=== PATIENT | male | born 1955 | race African-American/Black ===

== ENCOUNTER 2023-10-13 13:12 | Emergency (ER) | payer BC, MEDICAID ==
[~2023-10-13] VITALS: Ht 185.4 cm; Wt 99.0 kg
[~2023-10-13 13:12] MED LIST: AMLO5TAB88 PO; ATOR20TA PO; COR12 PO
[2023-10-13 13:20] VITALS: BP 129/78; PULSE 57; RESP 16; TEMP 98.9; O2SAT 100
[2023-10-13 13:53] LABS: BASOPHILS % 2.1 % (0.0-2.0); DIFFERENTIAL COMMENT 0; EOSINOPHILS % 8.1 % (0.0-5.0); HEMATOCRIT. 40.3 % (42.0-52.0); HEMOGLOBIN. 13.4 g/dL (14.0-18.0); LYMPHOCYTES % 29.9 % (20.0-50.0); MEAN CORPUSCULAR HEMOGLOBIN 29.3 pg (28.0-32.0); MEAN CORPUSCULAR HGB CONC 33.2 g/dL (31.0-37.0); MEAN CORPUSCULAR VOLUME 88.3 fL (80.0-94.0); MEAN PLATELET VOLUME 9.9 fl (7.4-10.4); MONOCYTES % 11.1 % (2.0-8.0); NEUTROPHILS % 48.8 % (40.0-76.0); PLATELET 228 x1000/uL (130-400); RED BLOOD CELL COUNT 4.57 mill/uL (4.7-6.1); RED CELL DISTRIBUTION WIDTH 15.5 % (11.6-14.6); WHITE BLOOD COUNT 5.8 x1000/uL (4.5-11.0)
[2023-10-13 14:07] LABS: ALANINE AMINOTRANSFERASE 9 IU/L (10-49); ALBUMIN 4.5 g/dL (3.2-4.8); ASPARTATE AMINOTRANSFERASE 18 IU/L (<34); BILIRUBIN TOTAL 0.6 mg/dL (0.1-1.0); CALCIUM 9.5 mg/dL (8.7-10.4); CARBON DIOXIDE 29 mEq/L (21-32); CHLORIDE 104 mEq/L (98-107); CREATININE 1.5 mg/dL (0.6-1.3); GLUCOSE 80 mg/dL (70-105); POTASSIUM 5.2 mEq/L (3.5-5.1); SODIUM 137 mEq/L (136-145); TROPONIN I HIGH SENSITIVITY 53 ng/L (3.0-53); UREA NITROGEN BLOOD 15 mg/dL (9-23)
[2023-10-13 14:08] LABS: PROTEIN TOTAL 8.7 g/dL (6.0-8.3)
[2023-10-13] MEDS ORDERED: IBUP-2029 MT (14:46)
[2023-10-13] MEDS: ASPIRIN 325MG TABLET PO ONE (14:50)
[2023-10-13] MEDS: IBUPROFEN 600MG TABLET PO ONE (14:50)
== END 2023-10-13 15:11 | disposition home or self-care (01) ==
LOC: ER 13:12
DX: R07.89 Other chest pain (principal); I10 Essential (primary) hypertension
CPT/HCPCS: 36415; 71045; 80053; 84484; 85025; 93005; 99285

== ENCOUNTER 2024-07-24 14:43 | Inpatient (IN) | payer BC, MEDICAID, MEDICARE ==
[~2024-07-24] VITALS: Ht 190.5 cm; Wt 93.4 kg
[~2024-07-24 14:43] MED LIST changes: +IBUP-2029 MT
[2024-07-24 15:18] LABS: POTASSIUM 3.9 mEq/L (3.5-5.1)
[2024-07-24 15:19] LABS: BASOPHILS % 0.8 % (0.0-2.0); CALCIUM 9.1 mg/dL (8.7-10.4); EOSINOPHILS % 0.7 % (0.0-5.0); HEMATOCRIT. 37.5 % (42.0-52.0); HEMOGLOBIN. 12.4 g/dL (14.0-18.0); LYMPHOCYTES % 12.8 % (20.0-50.0); MEAN CORPUSCULAR HEMOGLOBIN 28.2 pg (28.0-32.0); MEAN CORPUSCULAR VOLUME 85.4 fL (80.0-94.0); MONOCYTES % 14.1 % (2.0-8.0); NEUTROPHILS % 71.6 % (40.0-76.0); PLATELET 140 x1000/uL (130-400); RED CELL DISTRIBUTION WIDTH 15.3 % (11.6-14.6); WHITE BLOOD COUNT 5.2 x1000/uL (4.5-11.0)
[2024-07-24 15:32] LABS: CREATININE 2.3 mg/dL (0.6-1.3)
[2024-07-24 16:16] LABS: TROPONIN I HIGH SENSITIVITY 153 ng/L (3.0-53)
[2024-07-24 16:44] LABS: POTASSIUM 3.7 mEq/L (3.5-5.1)
[2024-07-24 16:46] LABS: CALCIUM 9.2 mg/dL (8.7-10.4)
[2024-07-24 16:50] LABS: CREATININE 2.3 mg/dL (0.6-1.3)
[2024-07-24 16:56] LABS: INR 1.1; PARTIAL THROMBOPLASTIN TIME 31.9 sec (23.4-31.0); PROTHROMBIN TIME 11.8 sec (9.6-11.0)
[2024-07-24] MEDS: MORPHINE SULFATE 4 MG/ML INJ (FOR IV/IM USE) IV STA (17:07)
[2024-07-24] MEDS: ASPIRIN 325MG EC TABLET PO ONE (17:08)
[2024-07-24] MEDS: ONDANSETRON HCL 4MG/2ML INJ IV STA (17:08)
[2024-07-24 23:45] VITALS: BP 105/57; PULSE 52; RESP 18; TEMP 36.6404
[2024-07-25 04:00] VITALS: BP 128/56; PULSE 54; RESP 18; TEMP 36.114; O2SAT 99
[2024-07-25] MEDS ORDERED: ACETAMINOPHEN 325MG TABLET PO PRN (06:15)
[2024-07-25] MEDS: ENOXAPARIN 40MG/0.4ML SYR SUBCUT SCH (09:00)
[2024-07-25] MEDS: ASPIRIN 325MG EC TABLET PO SCH (09:05)
[2024-07-25] MEDS: PANTOPRAZOLE 40MG DR TABLET PO SCH (09:05)
[2024-07-25 09:29] VITALS: BP 101/50; PULSE 60; RESP 18; TEMP 36.72516; O2SAT 95
[2024-07-25] MEDS ORDERED: IPRATROPIUM/ALBUTEROL 0.5-3(2.5)MG/3ML NEB HHN NR (10:30)
[2024-07-25 11:33] LABS: HEMATOCRIT. 35.6 % (42.0-52.0); HEMOGLOBIN. 11.6 g/dL (14.0-18.0); MEAN CORPUSCULAR HEMOGLOBIN 28.2 pg (28.0-32.0); MEAN CORPUSCULAR HGB CONC 32.6 g/dL (31.0-37.0); MEAN CORPUSCULAR VOLUME 86.5 fL (80.0-94.0); MEAN PLATELET VOLUME 9.9 fl (7.4-10.4); PLATELET 125 x1000/uL (130-400); RED BLOOD CELL COUNT 4.12 mill/uL (4.7-6.1); RED CELL DISTRIBUTION WIDTH 15.5 % (11.6-14.6); WHITE BLOOD COUNT 3.3 x1000/uL (4.5-11.0)
[2024-07-25 11:35] LABS: DIFFERENTIAL COMMENT 1
[2024-07-25 11:42] VITALS: BP 91/49; PULSE 60; RESP 18; TEMP 36.61404; O2SAT 96
[2024-07-25 11:42] LABS: POTASSIUM 3.5 mEq/L (3.5-5.1)
[2024-07-25 11:43] LABS: CALCIUM 8.8 mg/dL (8.7-10.4)
[2024-07-25 15:57] VITALS: BP 95/52; PULSE 60; RESP 18; TEMP 36.61404; O2SAT 95
[2024-07-25 16:35] LABS: PLATELET ESTIMATE NORMAL
[2024-07-25 17:59] LABS: TROPONIN I HIGH SENSITIVITY 104 ng/L (3.0-53)
[2024-07-25] MEDS ORDERED: LOSA1TAB34 PO (18:10)
[2024-07-25] MEDS ORDERED: AMLO10TA4 PO (18:13)
[2024-07-25] MEDS ORDERED: ASPI-1497 PO (18:14)
[2024-07-25 20:00] VITALS: BP 100/60; PULSE 77; RESP 19; TEMP 36.78072; O2SAT 100
[2024-07-25] MEDS: ATORVASTATIN CALCIUM 40MG TABLET PO SCH (20:50)
[2024-07-25] MEDS: IPRATROPIUM/ALBUTEROL 0.5-3(2.5)MG/3ML NEB HHN SCH (21:26)
[2024-07-25 21:27] VITALS: PULSE 58; RESP 18; O2SAT 93
[2024-07-26] VITALS (7 sets, daily range): BP systolic 102–113; BP diastolic 60–65; PULSE 56–79; RESP 17–19; TEMP 36.44736–36.6696; O2SAT 95–100
[2024-07-26 02:09] LABS: TROPONIN I HIGH SENSITIVITY 109 ng/L (3.0-53)
[2024-07-26 08:27] LABS: HEMATOCRIT. 36.5 % (42.0-52.0); HEMOGLOBIN. 12.1 g/dL (14.0-18.0); MEAN CORPUSCULAR HEMOGLOBIN 28.2 pg (28.0-32.0); MEAN CORPUSCULAR VOLUME 85.4 fL (80.0-94.0); PLATELET 137 x1000/uL (130-400); RED BLOOD CELL COUNT 4.27 mill/uL (4.7-6.1); RED CELL DISTRIBUTION WIDTH 15.4 % (11.6-14.6); WHITE BLOOD COUNT 3.6 x1000/uL (4.5-11.0)
[2024-07-26] MEDS ORDERED: LEVOFLOXACIN 500MG PREMIX 100 ML IV SCH (08:30)
[2024-07-26 08:33] LABS: POTASSIUM 3.7 mEq/L (3.5-5.1)
[2024-07-26 08:34] LABS: CALCIUM 8.8 mg/dL (8.7-10.4)
[2024-07-26 08:37] LABS: DIFFERENTIAL COMMENT 1
[2024-07-26 08:39] LABS: CREATININE 2.1 mg/dL (0.6-1.3)
[2024-07-26] MEDS: PREDNISONE 20MG TABLET PO SCH (09:40)
[2024-07-26] MEDS: ASPIRIN 81MG EC TABLET PO SCH (09:40)
[2024-07-26] MEDS: AMLODIPINE 2.5MG TABLET PO SCH (09:41)
[2024-07-26 10:05] LABS: PLATELET ESTIMATE NORMAL
[2024-07-26] MEDS: LEVOFLOXACIN 750MG PREMIX 150 ML IV SCH (11:59)
[2024-07-26] MEDS ORDERED: P20 MT (12:29)
[2024-07-26] MEDS ORDERED: LEVO750T68 PO (12:29)
[2024-07-26] MEDS: LEVOFLOXACIN 250MG TABLET PO SCH (14:35)
== END 2024-07-26 15:00 | disposition home or self-care (01) | DRG 191 ==
LOC: ER 15:05 → EDBEDREQ 17:33 → 8WST 23:04
PROVIDERS: ADMIT Internal Medicine; ATTEND Internal Medicine
DX: J44.1 Chronic obstructive pulmonary disease with (acute) exacerbation (principal); I13.0 Hypertensive heart and chronic kidney disease with heart failure and stage 1 through stage 4 chronic kidney disease, or unspecified chronic kidney disease; J06.9 Acute upper respiratory infection, unspecified; N18.9 Chronic kidney disease, unspecified; I50.9 Heart failure, unspecified; E78.5 Hyperlipidemia, unspecified; F17.210 Nicotine dependence, cigarettes, uncomplicated; Z79.82 Long term (current) use of aspirin; Z79.899 Other long term (current) drug therapy; I25.2 Old myocardial infarction
CPT/HCPCS: 36415; 71045; 80048; 80061; 83880; 84484; 85025; 93005; 93306; 94640; 99285; J1956; J7512